=== PATIENT | female | born 1995 | race Caucasian/White ===

== ENCOUNTER 2018-01-07 05:30 | Day surgery (SDC) | payer OTHER ==
[~2018-01-07] VITALS: Ht 167.6 cm; Wt 90.7 kg
[~2018-01-07 05:30] MED LIST: NORCO 5-325 TA1 EACH PO; SPRINTEC1 EACH PO
[2018-01-07 11:04] LABS: HEMATOCRIT 36.9 % (37.0-47.0); HEMOGLOBIN 12.5 gm/dL (12.0-15.0); MCH 27.6 pg (26.0-34.0); MCHC 33.8 g/dL (28.0-37.0); MCV 81.6 fL (80.0-100.0); RBC 4.52 mil/uL (4.20-5.00); RDW 13.8 % (10.5-14.5); WBC 8.7 thou/uL (4.0-11.0)
[2018-01-07 11:11] LABS: CALCIUM 8.8 mg/dL (8.5-10.1); CREATININE 0.9 mg/dL (0.6-1.0)
[2018-01-07 11:14] VITALS: BP 144/70
== END 2018-01-07 17:10 | disposition home or self-care (01) ==
LOC: OR 05:30 → TBA 05:31 → OR 07:24
PROVIDERS: Podiatrist
DX: S82.842A Displaced bimalleolar fracture of left lower leg, initial encounter for closed fracture (principal); E66.9 Obesity, unspecified; Z68.32 Body mass index [BMI] 32.0-32.9, adult; Z98.818 Other dental procedure status; Z98.890 Other specified postprocedural states; Z79.899 Other long term (current) drug therapy; X58.XXXA Exposure to other specified factors, initial encounter; Y93.89 Activity, other specified; Y92.89 Other specified places as the place of occurrence of the external cause; Y99.8 Other external cause status
CPT/HCPCS: 50010; 50101; 50386; 55430; 56524; 56526; 56527; 57091; 62110; 62900; 64042; 70005

== ENCOUNTER → 2018-03-29 | Outpatient (CLI) | payer OTHER ==
[~2018-03-29] VITALS: Ht 165.1 cm; Wt 96.2 kg
[~2018-03-29] MED LIST changes: +DOXYCYCLINE 10100 MG PO
--- NOTE | ~2018-03-29 | HC ---
[facility] [place] [address] CONSULTATION Name: KRISTOPHER VINES Room #: REG Shaquille Byron#: [id number] Admission: 03/29/18 Attend Phys: Samson Gaspar Discharge: Date of : 89 Report #: [id number] THIS REPORT FOR: //name// CC: Deo Nguyễn Momo Lang DATE OF SERVICE: 03/29/2018 HISTORY OF PRESENT ILLNESS: The patient is a 22-year-old white woman who suffers a fall and bimalleolar fracture, left ankle requiring open reduction internal fixation with plates and screws by Dr. Nguyễn. Subsequently, the patient requires removal of the hardware on 02/10/2018. The patient did receive treatment with Bactrim-DS 2 times daily for some 4 weeks. She did have blood tests at [facility] that were normal and again, she had repeat blood tests as an outpatient. They reveal a mild elevation of ESR and CRP and the culture revealed Enterobacter cloacae. The patient now has still some swelling of the left lower extremity and minimal to no drainage per left ankle lateral wound. No systemic symptoms of increasing pain, fever, redness, chills or signs or symptoms to suggest infection. DRUG ALLERGIES: None listed. MEDICATIONS: She is on treatment with control pill. She had finished the course of antibiotic, Bactrim-DS b.i.d. for 4 weeks. PAST MEDICAL HISTORY: Essentially noncontributory. REVIEW OF SYSTEMS: Noncontributory. PHYSICAL EXAMINATION: GENERAL: This is a well-developed, well-nourished woman, not toxic looking. VITAL SIGNS: Temperature 98.8, pulse 71, BP 138/85, O2 saturation 98% on room air, height 5 feet 5 inches, weight is 212 pounds. HEENMT: Within range. NECK: Supple, no thyromegaly. LUNGS: Clear to auscultation. HEART: S1, S2. No gallop or murmur. ABDOMEN: Soft, no masses or megaly. EXTREMITIES: There are surgical wounds over the medial and lateral aspect of the left ankle. Most of the wounds are well healed. Minimal drainage on the left ankle lateral malleolus dressing. No increased temperature. Good sensation and peripheral pulses. LABORATORY DATA: A culture obtained on 02/03/2018 revealed heavy growth of Enterobacter cloacae sensitive to most antibiotics, but amoxicillin, cefazolin. [address] [address] CONSULTATION Name: KRISTOPHER VINES Room #: REG CLI Gretchen#: [id number] Admission: 03/29/18 Attend Phys: Samson Gaspar Discharge: Date of : 89 Report #: [id number] ESR 29 mm per hour, CRP 12.6 mg/L. CBC normal. RADIOLOGY EVALUATION: X-rays of the left ankle revealed status post removal of the hardware over the left fibula and distal tibia. Tragic soft screws are present. ASSESSMENT: 1. Status post bimalleolar fracture requiring open reduction internal fixation. 2. Status post removal of left ankle hardware on 02/10/2018. 3. Persistent postoperative swelling, left lower extremity. SUGGESTIONS: At present, I recommend no further antibiotic treatment. I most definitely would like to see a repeat CBC with differential, ESR and CRP. If those are lower compared to previously, then it further confirms my initial impression that no further indication for systemic antibiotics is in order. We will contact the patient with test results and make final recommendation once those are available to us. Since the patient has had persistent swelling of left lower extremity, I would like to visit with her one more time in 4-6 weeks to assess complete resolution of edema. If the patient is completely normal at that point in time, she may call and cancel her appointment. <ELECTRONICALLY SIGNED> By: Samson Lang MD 03/30/18 [id number] Samson Lang MD /nt
[2018-03-29 10:55] VITALS: BP 138/85
[2018-03-29 12:07] LABS: ABSOLUTE NEUTROPHILS 3.1 thou/uL (1.4-8.2); BASOPHILS 1.1 % (0.0-2.0); EOSINOPHILS 3.6 % (0.0-3.0); HEMATOCRIT 38.4 % (37.0-47.0); LYMPHOCYTES 38.2 % (24.0-44.0); MCH 27.6 pg (26.0-34.0); MCHC 33.7 g/dL (28.0-37.0); PLATELET COUNT 321 thou/uL (150-400); POLYS 51.1 % (36.0-66.0); RBC 4.69 mil/uL (4.20-5.00); WBC 6.1 thou/uL (4.0-11.0)
== END ==
LOC: SEN 08:20
PROVIDERS: Internal Medicine Infectious Disease
DX: S82.842D Displaced bimalleolar fracture of left lower leg, subsequent encounter for closed fracture with routine healing (principal); M79.89 Other specified soft tissue disorders; X58.XXXD Exposure to other specified factors, subsequent encounter